=== PATIENT | male | born 1960 | race Caucasian/White ===

== ENCOUNTER 2018-12-07 17:20 | Emergency (ER) | payer MEDICAID, OTHER ==
[~2018-12-07] VITALS: Ht 170.2 cm; Wt 61.0 kg
--- NOTE | 2018-12-07 17:27 | NUR ---
mary arora at bedside/sister,reports that patient verbalized to her that he wanted to hurt himself,no active plan at this time-denies SI during triage.
--- NOTE | 2018-12-07 17:55 | NUR ---
patient placed in a hospital gown,urine and blood collected-sent to the lab.ket comfortable in bed.
[2018-12-07] MEDS ORDERED: normal saline 1000ML IV soln IVB ONE (18:55)
[2018-12-07] MEDS ORDERED: proCHLORperazine 10 MG/2 ml inj IV ONE (18:55)
[2018-12-07] MEDS ORDERED: chlordiazePOXIDE 25mg capsule PO ONE (18:55)
[2018-12-07] MEDS ORDERED: ketorolac tromethamine 15mg/ml inj. IV ONE (18:55)
[2018-12-07] MEDS ORDERED: diphenhydrAMINE 50 mg/ml inj IV ONE (18:55)
[2018-12-07 19:22] LABS: MEAN CORPUSCULAR VOLUME 95.4 FL (78-98); MONOCYTES # (AUTO) 0.7 X10'3 (0-0.9); RED CELL DISTRIBUTION WIDTH 13.6 % (11.5-14.5)
[2018-12-07 19:24] LABS: BASOPHILS % (AUTO) 0.4 % (0-1); EOSINOPHILS % (AUTO) 0.1 % (0-6); HEMATOCRIT 39.5 % (42.0-52.0); HEMOGLOBIN 13.5 g/dl (14.0-17.9); LYMPHOCYTES # (AUTO) 0.8 X10'3 (1.1-4.8); MEAN CORPUSCULAR HEMOGLOBIN 32.7 PG (27.0-31.0); MEAN CORPUSCULAR HGB CONC 34.3 g/dL (33.0-36.5); MEAN PLATELET VOLUME 7.8 FL (7.4-10.4); MONOCYTES % (AUTO) 6.5 % (2-12); PLATELET COUNT 93 X10'3 (140-440); RED BLOOD COUNT 4.14 X10'6 (4.70-6.10); WHITE BLOOD COUNT 10.5 X10'3 (4.5-11.0)
[2018-12-07 19:27] LABS: ALANINE AMINOTRANSFERASE 130 U/L (12-78); ALBUMIN 3.8 G/DL (3.4-5.0); ALBUMIN/GLOBULIN RATIO 1.1 (1.1-1.5); ALKALINE PHOSPHATASE 50 IU/L (46-116); ANION GAP 8 (8-16); ASPARTATE AMINO TRANSFERASE 67 U/L (10-37); BILIRUBIN,TOTAL 1.2 MG/DL (0.1-1.0); BLOOD UREA NITROGEN 16 MG/DL (7-18); BUN/CREATININE RATIO 19.3 (5.4-32.0); CALCIUM 8.5 MG/DL (8.5-10.1); CHLORIDE 94 MMOL/L (99-107); CREATININE 0.83 MG/DL (0.60-1.10); GLUCOSE 156 MG/DL (70-104); LIPASE 216 U/L (73-393); POTASSIUM 4.1 MMOL/L (3.5-5.1); SODIUM 132 MMOL/L (135-145); TOTAL CARBON DIOXIDE 30.1 MMOL/L (24-32); TOTAL PROTEIN 7.2 G/DL (6.4-8.2); eGFR > 90 ML/MIN
[2018-12-07 19:32] LABS: ETHANOL < 0.010 GM/DL (0.0-0.010)
[2018-12-07] MEDS ORDERED: thiamine 100mg tablet PO ONE (20:00)
[2018-12-07] MEDS ORDERED: hyDRALAzine 10mg tablet PO STA (20:44)
[2018-12-07 21:03] VITALS: BP 168/96
[2018-12-07] MEDS ORDERED: ONDA4TAB6 PO (21:42)
[2018-12-07] MEDS ORDERED: CLON-529 PO (21:42)
[2018-12-07] MEDS ORDERED: HYDR-3717 PO (21:42)
[2018-12-07] MEDS ORDERED: CHLO25CA10 PO (21:42)
== END 2018-12-07 22:07 | disposition home or self-care (01) ==
LOC: ER 17:21
DX: F10.239 Alcohol dependence with withdrawal, unspecified (principal); I10 Essential (primary) hypertension; G89.29 Other chronic pain; F41.9 Anxiety disorder, unspecified; R25.1 Tremor, unspecified; Z79.899 Other long term (current) drug therapy
CPT/HCPCS: 36415; 70450; 72125; 80053; 80320; 83690; 85025; 93005; 96374; 96375; 99284; J0780; J1200; J1885; J7030

== ENCOUNTER 2019-04-26 11:46 | Day surgery (SDC) | payer MEDICAID ==
[2019-04-23 11:18] LABS: BASOPHILS # (AUTO) 0.1 X10'3 (0-0.2); EOSINOPHILS # (AUTO) 0.1 X10'3 (0-0.9); EOSINOPHILS % (AUTO) 1.1 % (0-6); HEMATOCRIT 41.1 % (42.0-52.0); LYMPHOCYTES # (AUTO) 1.4 X10'3 (1.1-4.8); MEAN CORPUSCULAR HEMOGLOBIN 32.9 PG (27.0-31.0); MEAN CORPUSCULAR HGB CONC 34.1 g/dL (33.0-36.5); MEAN CORPUSCULAR VOLUME 96.6 FL (78-98); MEAN PLATELET VOLUME 7.3 FL (7.4-10.4); MONOCYTES # (AUTO) 0.5 X10'3 (0-0.9); MONOCYTES % (AUTO) 8.8 % (2-12); NEUTROPHILS # (AUTO) 3.8 X10'3 (1.8-7.7); NEUTROPHILS % (AUTO) 65.1 % (42-75); PLATELET COUNT 214 X10'3 (140-440); RED BLOOD COUNT 4.25 X10'6 (4.70-6.10); RED CELL DISTRIBUTION WIDTH 13.9 % (11.5-14.5); WHITE BLOOD COUNT 5.8 X10'3 (4.5-11.0)
[2019-04-23 11:29] LABS: PARTIAL THROMBOPLASTIN TIME 29 SECONDS (22-32)
[2019-04-23 11:31] LABS: ALANINE AMINOTRANSFERASE 24 U/L (12-78); ALBUMIN 3.9 G/DL (3.4-5.0); ALKALINE PHOSPHATASE 54 IU/L (46-116); ANION GAP 5 (8-16); ASPARTATE AMINO TRANSFERASE 14 U/L (10-37); BILIRUBIN,TOTAL 0.3 MG/DL (0.1-1.0); BLOOD UREA NITROGEN 15 MG/DL (7-18); CHLORIDE 106 MMOL/L (99-107); CREATININE 1.07 MG/DL (0.60-1.10); GLUCOSE 98 MG/DL (70-104); POTASSIUM 4.5 MMOL/L (3.5-5.1); SODIUM 143 MMOL/L (135-145); TOTAL CARBON DIOXIDE 32.1 MMOL/L (24-32); TOTAL PROTEIN 7.7 G/DL (6.4-8.2); eGFR 70 ML/MIN
[~2019-04-26] VITALS: Ht 170.2 cm; Wt 64.8 kg
[2019-04-26] VITALS (12 sets, daily range): BP systolic 115–156; BP diastolic 62–86
[~2019-04-26 11:46] MED LIST: CHLO25CA10 PO; CLON-529 PO; ONDA4TAB6 PO
[2019-04-26] MEDS ORDERED: normal saline 1,000 ML IV SCH (12:05)
[2019-04-26] MEDS ORDERED: diphenhydrAMINE 25mg capsule PO PRN (12:05)
[2019-04-26] MEDS ORDERED: LORazepam 0.5 MG tablet PO PRN (12:05)
[2019-04-26] MEDS ORDERED: nitroGLYCERIN 0.4mg SUBLingual tab SL PRN ×2 (12:05→15:05)
[2019-04-26] MEDS ORDERED: fentaNYL/PF 50MCG/1 ML 2ML syringe ONE (13:00)
[2019-04-26] MEDS ORDERED: LIDOcaine 1% (10mg/ml)w/preservative injection 20ml MDV ONE (13:00)
[2019-04-26] MEDS ORDERED: THC PO (13:00)
[2019-04-26] MEDS ORDERED: ATOR80TA PO (13:00)
[2019-04-26] MEDS ORDERED: DULO60CA45 PO (13:00)
[2019-04-26] MEDS ORDERED: LISI1TAB32 PO (13:00)
[2019-04-26] MEDS ORDERED: midazolam 2 mg/2 ml injection ONE ×2 (13:00→14:09)
[2019-04-26] MEDS ORDERED: OMEP20TA5 PO (13:00)
[2019-04-26] MEDS ORDERED: METO-384 PO (13:00)
[2019-04-26] MEDS ORDERED: QUET50TA PO (13:00)
[2019-04-26] MEDS ORDERED: GABA-532 PO (13:00)
[2019-04-26] MEDS ORDERED: iohexol 350 MG/ML 50ML vial IV ONE ×2 (13:01→14:18)
[2019-04-26] MEDS ORDERED: iohexol 350MG/ML 100ml bottle IV ONE (13:01)
[2019-04-26] MEDS ORDERED: OXAZEpam 15mg capsule PO PRN (15:05)
[2019-04-26] MEDS ORDERED: proCHLORperazine 10 MG/2 ml inj IV PRN (15:05)
[2019-04-26] MEDS ORDERED: normal saline 1000ml 1,000 ML IV SCH (15:05)
[2019-04-26] MEDS ORDERED: HYDROcodone/acetaminophen 10/325mg tab PO PRN (15:05)
[2019-04-26] MEDS ORDERED: ondansetron/PF 4mg/2ml inj IV PRN (15:05)
[2019-04-26] MEDS ORDERED: HYDROcodone/acetaminophen 5mg/325mg tablet PO PRN (15:05)
== END 2019-04-26 20:25 | disposition home or self-care (01) ==
LOC: SSTAY O 11:46
PROVIDERS: ATTEND Internal Medicine Cardiovascular Disease
DX: R94.39 Abnormal result of other cardiovascular function study (principal); I25.10 Atherosclerotic heart disease of native coronary artery without angina pectoris; G89.29 Other chronic pain; F17.210 Nicotine dependence, cigarettes, uncomplicated; F12.90 Cannabis use, unspecified, uncomplicated; J44.9 Chronic obstructive pulmonary disease, unspecified; E78.5 Hyperlipidemia, unspecified; I10 Essential (primary) hypertension; F32.9 Major depressive disorder, single episode, unspecified; Z95.1 Presence of aortocoronary bypass graft; Z79.01 Long term (current) use of anticoagulants
CPT/HCPCS: 36415; 71046; 80053; 85025; 85610; 85730; 93005; 93458; 99152; 99153; C1769; J1644; J2001; J2250; J3010; J7030; Q0163; Q9967; A4620; A6258; C1760

== ENCOUNTER 2019-09-20 17:16 | Emergency (ER) | payer MEDICAID ==
[~2019-09-20] VITALS: Ht 170.2 cm; Wt 66.0 kg
[~2019-09-20 17:16] MED LIST changes: +ATOR80TA PO; -CHLO25CA10 PO; +DULO60CA45 PO; +GABA-532 PO; +LISI1TAB32 PO; +METO-384 PO; +OMEP20TA5 PO; -ONDA4TAB6 PO; +QUET50TA PO; +THC PO
[2019-09-20] MEDS ORDERED: diphenhydrAMINE 50 mg/ml inj IV ONE (18:40)
[2019-09-20] MEDS ORDERED: morphine 4 MG/ML inj SYRINge IV ONE ×2 (18:40→19:55)
[2019-09-20] MEDS ORDERED: proCHLORperazine 10 MG/2 ml inj IV ONE (18:40)
[2019-09-20] MEDS ORDERED: ondansetron/PF 4mg/2ml inj IV ONE ×2 (18:40→19:55)
--- NOTE | 2019-09-20 18:59 | NUR ---
pt given med pain 10/31, vs updated
[2019-09-20 19:35] LABS: BASOPHILS % (AUTO) 0.2 % (0-1); EOSINOPHILS % (AUTO) 0 % (0-6); HEMATOCRIT 40.6 % (42.0-52.0); LYMPHOCYTES # (AUTO) 0.5 X10'3 (1.1-4.8); LYMPHOCYTES % (AUTO) 4.6 % (21-51); MEAN CORPUSCULAR HEMOGLOBIN 31.8 PG (27.0-31.0); MEAN CORPUSCULAR HGB CONC 34.5 g/dL (33.0-36.5); MEAN CORPUSCULAR VOLUME 92.3 FL (78-98); MONOCYTES # (AUTO) 0.7 X10'3 (0-0.9); MONOCYTES % (AUTO) 6.9 % (2-12); NEUTROPHILS # (AUTO) 9.4 X10'3 (1.8-7.7); NEUTROPHILS % (AUTO) 88.3 % (42-75); PLATELET COUNT 157 X10'3 (140-440); RED CELL DISTRIBUTION WIDTH 15.2 % (11.5-14.5); WHITE BLOOD COUNT 10.7 X10'3 (4.5-11.0)
[2019-09-20 19:49] LABS: ALANINE AMINOTRANSFERASE 26 U/L (12-78); ALBUMIN 3.7 G/DL (3.4-5.0); ALKALINE PHOSPHATASE 102 IU/L (46-116); ANION GAP 8 (8-16); ASPARTATE AMINO TRANSFERASE 32 U/L (10-37); BILIRUBIN,TOTAL 0.8 MG/DL (0.1-1.0); BLOOD UREA NITROGEN 10 MG/DL (7-18); BUN/CREATININE RATIO 9.3 (5.4-32.0); CALCIUM 8.7 MG/DL (8.5-10.1); CHLORIDE 102 MMOL/L (99-107); CREATININE 1.08 MG/DL (0.60-1.10); GLUCOSE 116 MG/DL (70-104); LIPASE 91 U/L (73-393); POTASSIUM 3.2 MMOL/L (3.5-5.1); SODIUM 139 MMOL/L (135-145); TOTAL CARBON DIOXIDE 28.8 MMOL/L (24-32); TOTAL PROTEIN 7.4 G/DL (6.4-8.2); eGFR 70 ML/MIN
--- NOTE | 2019-09-20 20:05 | NUR ---
he is shaky when he took a drink of water. Couple of beers Hasn't drank x 2 days
[2019-09-20] MEDS ORDERED: labetalol 20mg/4ml (5mg/ml) syringe IV ONE (20:15)
[2019-09-20] MEDS ORDERED: normal saline 1000ml 1,000 ML IV ONE ×2 (20:15→21:55)
[2019-09-20] MEDS ORDERED: iohexol 350MG/ML 100ml bottle IV ONE (20:25)
--- NOTE | 2019-09-20 20:30 | NUR ---
pt given bp meds pt has been hypertensive, ct here to get pt will salin lock pt for ct
--- NOTE | 2019-09-20 20:55 | NUR ---
pt back from ct, ns bolus infusing, bp checked
--- NOTE | 2019-09-20 21:23 | NUR ---
pt was hooked back up to his vs and changed into a gown
--- NOTE | 2019-09-20 21:24 | NUR ---
pt voided in urinal 400ml
[2019-09-20] MEDS ORDERED: ONDA4TAB6 PO (21:46)
[2019-09-20] MEDS ORDERED: CYCL-1 PO (21:46)
[2019-09-20] MEDS ORDERED: LORazepam 1 MG tablet PO ONE (21:55)
--- NOTE | 2019-09-20 22:08 | NUR ---
PT GIVEN ATIVAN AND SOME FOOD TO GET PT READY FOR DISCHARGE
[2019-09-20] MEDS ORDERED: GABA300C PO (22:48)
[2019-09-20 23:01] VITALS: BP 181/99
== END 2019-09-20 23:04 | disposition home or self-care (01) ==
LOC: ER 17:17
DX: R11.2 Nausea with vomiting, unspecified (principal); M54.5 Low back pain; I10 Essential (primary) hypertension; G89.29 Other chronic pain; F41.9 Anxiety disorder, unspecified; Z98.890 Other specified postprocedural states; Z60.2 Problems related to living alone; Z79.899 Other long term (current) drug therapy
CPT/HCPCS: 36415; 71275; 74174; 80053; 83690; 85025; 93005; 96361; 96374; 96375; 96376; 99285; J0780; J1200; J2270; J2405; J7030; Q9967; J3490

== ENCOUNTER 2023-08-18 08:06 | Day surgery (SDC) | payer BC ==
[~2023-08-18] VITALS: Ht 170.2 cm; Wt 57.0 kg
[2023-08-18] VITALS (7 sets, daily range): BP systolic 136–165; BP diastolic 71–84; PULSE 62–118; RESP 16–31; TEMP 97.9; O2SAT 94–100
[~2023-08-18 08:06] MED LIST changes: -CLON-529 PO; +CLON0.1T2 PO; +DOCUMENT DATE & TIME OF BETA-BLOCKER PO ONE; -DULO60CA45 PO; -GABA-532 PO; +KETO5DRO40 EACHEYE; -LISI1TAB32 PO; +LISI1TAB51 PO; -OMEP20TA5 PO; +OMEP40CA21 PO; -QUET50TA PO; +SERT-434 PO; +SILD50TA53 PO; -THC PO; +TRAZ-251 PO
[2023-08-18] MEDS: famotidine 20mg tablet PO ONE (09:00)
[2023-08-18] MEDS: ringers solution, lacted 1,000 ML IV SCH ×2 (09:01→12:27)
[2023-08-18] MEDS ORDERED: meperidine/PF 25mg/ml syringe IV PRN ×3 (09:45)
[2023-08-18] MEDS ORDERED: morphine 4 MG/ML inj SYRINge IV PRN (09:45)
[2023-08-18] MEDS ORDERED: ondansetron/PF 4mg/2ml inj IV PRN (09:45)
[2023-08-18] MEDS ORDERED: proCHLORperazine 10 MG/2 ml inj IV PRN (09:45)
[2023-08-18] MEDS ORDERED: morphine 2 MG/ML inj. syringe IV PRN (09:45)
[2023-08-18] MEDS ORDERED: sevoflurane 250ml liquid IH ONE (11:07)
[2023-08-18] MEDS ORDERED: fentaNYL/PF 50MCG/1 ML 2ML syringe ONE (11:10)
[2023-08-18] MEDS ORDERED: midazolam 1 mg/ML 2ml injection ONE (11:10)
[2023-08-18] MEDS ORDERED: rocuronium 10mg/ml inj IV ONE (11:12)
[2023-08-18] MEDS ORDERED: propofol inj 20 ML IV ONE (11:12)
[2023-08-18] MEDS ORDERED: dexamethasone sod phosphate 4mg/ml inj. ONE (11:54)
[2023-08-18] MEDS ORDERED: neostigmine methylsulfate 1 MG/ML 10ml vial ONE (11:55)
[2023-08-18] MEDS ORDERED: ondansetron/PF 4mg/2ml inj ONE (11:55)
[2023-08-18] MEDS ORDERED: glycopyrrolate 0.2mg/ml inj ONE (11:55)
== END 2023-08-18 13:03 | disposition home or self-care (01) ==
LOC: PAS 08:06
PROVIDERS: ATTEND Internal Medicine Critical Care Medicine
DX: R91.8 Other nonspecific abnormal finding of lung field (principal); C34.2 Malignant neoplasm of middle lobe, bronchus or lung
CPT/HCPCS: 31653; 71045; 82948; 87015; 87070; 87116; 87206; 93005; 94760; J1100; J2250; J2405; J2704; J2710; J3010; J3490; J7120; Z7506; Z7508; Z7512; 31622; 31624; 31625; 31626; 31627; 31628; 31654; A4618

== ENCOUNTER 2023-10-11 07:13 | Outpatient (CLI) | payer BC, MEDICARE ==
[~2023-10-11] VITALS: Ht 170.2 cm; Wt 59.0 kg
[~2023-10-11 07:13] MED LIST changes: -DOCUMENT DATE & TIME OF BETA-BLOCKER PO ONE
[2023-10-11 08:05] LABS: ABG BASE EXCESS -1.5 mmol/L (-2.0-2.0); ABG HCO3 22.8 mmol/L (22.0-26.0); ABG PH (T) 7.408 (7.340-7.440); ABG PO2 (T) 80.3 mmHg (75.0-100.0); ALLEN'S TEST POSITIVE; FHHb 3.9 % (0.0-5.0); FMetHb 0.2 % (0.0-1.5); FO2Hb 92.9 % (94-97); MODE ROOM AIR; TOTAL HEMOGLOBIN 12.7 G/dl (14.0-17.9)
[2023-10-11] MEDS: albuterol 2.5 MG/3 ML nebule NEB PRN (08:12)
[2023-10-11 08:15] VITALS: PULSE 60; RESP 14; O2SAT 99
[2023-10-12] MEDS ORDERED: PRED5DRO23 EACHEYE (12:46)
== END 2023-10-11 23:59 | disposition home or self-care (01) ==
LOC: RT 07:13
PROVIDERS: ATTEND Surgery
DX: J98.4 Other disorders of lung (principal)
CPT/HCPCS: 36600; 82803; 85018; 94060; 94727; 94729; 94760

== ENCOUNTER 2023-10-13 05:48 | Inpatient (IN) | payer BC, MEDICARE ==
[2023-10-12 12:35] LABS: BASOPHILS % (AUTO) 0.8 % (0-1); EOSINOPHILS % (AUTO) 0.7 % (0-6); LYMPHOCYTES # (AUTO) 1.2 X10'3 (1.1-4.8); LYMPHOCYTES % (AUTO) 23.9 % (21-51); MEAN CORPUSCULAR HEMOGLOBIN 31.9 PG (27.0-31.0); MEAN CORPUSCULAR HGB CONC 33.7 g/dL (33.0-36.5); MEAN CORPUSCULAR VOLUME 94.5 FL (78-98); MEAN PLATELET VOLUME 7.4 FL (7.4-10.4); MONOCYTES # (AUTO) 0.5 X10'3 (0-0.9); MONOCYTES % (AUTO) 9.6 % (2-12); NEUTROPHILS # (AUTO) 3.3 X10'3 (1.8-7.7); PRE OP HEMATOCRIT 35.7 % (42.0-52.0); PRE OP PLATELET COUNT 222 X10'3 (140-440); PRE OP WHITE BLOOD COUNT 5.1 10'3 (4.8-10.8); RED BLOOD COUNT 3.77 X10'6 (4.70-6.10); RED CELL DISTRIBUTION WIDTH 15.2 % (11.5-14.5)
[2023-10-12 12:48] LABS: PRE OP PROTIME 10.6 SECONDS (9.0-12.0)
[2023-10-12 12:51] LABS: ALBUMIN 3.6 G/DL (3.4-5.0); ALBUMIN/GLOBULIN RATIO 0.9 (1.1-1.5); ALKALINE PHOSPHATASE 67 IU/L (46-116); BLOOD UREA NITROGEN 12 MG/DL (7-18); BUN/CREATININE RATIO 11.3 (10.0-20.0); CALCIUM 9.1 MG/DL (8.5-10.1); CHLORIDE 103 MMOL/L (99-107); CREATININE 1.06 MG/DL (0.60-1.10); PRE OP ALT 25 U/L (30-65); PRE OP ANION GAP 7 (8-16); PRE OP AST 11 U/L (10-37); PRE OP BILIRUB, TOTAL 0.5 MG/DL (0.0-1.0); PRE OP GLUCOSE 84 MG/DL (70-104); PRE OP POTASSIUM 4.1 MMOL/L (3.4-5.1); PRE OP SODIUM 141 MMOL/L (135-145); TOTAL CARBON DIOXIDE 31.4 MMOL/L (24-32); TOTAL PROTEIN 7.8 G/DL (6.4-8.2); eCRCL 58 ML/MIN; eGFR 70 ML/MIN
[2023-10-12 12:56] LABS: BILIRUBIN,URINE NEGATIVE (Neg); CLARITY,URINE CLEAR (Clear); COLOR,URINE YELLOW (Yellow); GLUCOSE, URINE NEGATIVE (Neg); KETONES,URINE NEGATIVE (Neg); LEUKOCYTE ESTERASE ,URINE NEGATIVE (Neg); NITRITES, URINE NEGATIVE (Neg); OCCULT BLOOD,URINE NEGATIVE (Neg); PROTEIN,URINE NEGATIVE (Neg); UROBILINOGEN,URINE 0.2 E.U/dL (0.2-1.0)
[2023-10-12 13:01] LABS: UA COLLECTION TYPE CLN CATCH MIDSTREAM
[~2023-10-13] VITALS: Ht 170.2 cm; Wt 56.9 kg
[2023-10-13] VITALS (20 sets, daily range): BP systolic 115–172; BP diastolic 55–101; PULSE 58–88; RESP 12–17; TEMP 97.6; O2SAT 94–100
[2023-10-13] MEDS: cefazolin 2gm/D5W 100mL 100 ML IV ONE (05:30)
[~2023-10-13 05:48] MED LIST changes: +PRED5DRO23 EACHEYE; +famotidine 20mg tablet PO ONE
[2023-10-13] MEDS ORDERED: iohexol 300mg/ml 100ml inj. ONE (07:08)
[2023-10-13] MEDS ORDERED: MIDAZolam 1 MG/ML 5ML VIAL ONE (07:46)
[2023-10-13] MEDS ORDERED: fentaNYL /PF 50mcg/ml 5ml ampule ONE (07:46)
[2023-10-13] MEDS ORDERED: propofol inj 20 ML IV ONE (07:46)
[2023-10-13] MEDS ORDERED: rocuronium 10mg/ml inj IV ONE ×3 (07:48→13:07)
[2023-10-13] MEDS: ringers solution, lacted 1,000 ML IV SCH (07:48)
[2023-10-13] MEDS ORDERED: sevoflurane 250ml liquid IH ONE (09:01)
[2023-10-13] MEDS ORDERED: albumin (Human) 5% 250ml 250 ML IV ONE ×2 (10:46→13:07)
[2023-10-13] MEDS ORDERED: dexamethasone sod phosphate 4mg/ml inj. ONE (13:07)
[2023-10-13 14:40] LABS: ISTAT CREATININE 1.1 mg/dL (0.8-1.3); ISTAT HGB 10.2 g/dl (14.0-17.9); ISTAT IONIZED CALCIUM 1.14 mmol/L (1.03-1.32); ISTAT K 3.7 mmol/L (3.5-5.1); POC BUN/CREATININE RATIO 14.5 (5.4-32.0)
[2023-10-13] MEDS ORDERED: ceFAZolin 1000mg inj ONE ×2 (14:44)
[2023-10-13] MEDS ORDERED: acetaminophen 1,000mg/100ml IV 100 ML IV ONE (15:19)
[2023-10-13] MEDS ORDERED: fentaNYL/PF 50MCG/1 ML 2ML syringe ONE (15:20)
[2023-10-13] MEDS ORDERED: ondansetron/PF 4mg/2ml inj ONE (15:27)
[2023-10-13] MEDS ORDERED: sugammadex 200mg/2ml injection IV ONE (15:54)
[2023-10-13] MEDS ORDERED: morphine 2 MG/ML inj. syringe IV PRN ×2 (16:25→16:40)
[2023-10-13] MEDS ORDERED: ondansetron/PF 4mg/2ml inj IV PRN ×2 (16:25→16:40)
[2023-10-13] MEDS ORDERED: hydrALAZINE 20mg/ml inj. IV PRN (16:25)
[2023-10-13] MEDS ORDERED: meperidine/PF 25mg/ml syringe IV PRN ×3 (16:25)
[2023-10-13] MEDS ORDERED: labetalol 20mg/4ml (5mg/ml) syringe IV PRN (16:25)
[2023-10-13] MEDS ORDERED: ringers solution, lacted 1,000 ML IV SCH (16:25)
[2023-10-13] MEDS ORDERED: morphine 4 MG/ML inj SYRINge IV PRN ×2 (16:25→16:40)
[2023-10-13] MEDS: ondansetron/PF 4mg/2ml inj ONE (16:25)
[2023-10-13] MEDS: ketorolac trometh. 30mg/ml inj. ONE (16:25)
[2023-10-13] MEDS ORDERED: proCHLORperazine 10 MG/2 ml inj IV PRN (16:25)
[2023-10-13 16:33] LABS: ABG BASE EXCESS -4.7 mmol/L (-2.0-2.0); ABG HCO3 23.9 mmol/L (22.0-26.0); ABG OXYGEN SATURATION 99.4 % (94-97); ABG PH (T) 7.219 (7.340-7.440); ABG PO2 (T) 221.1 mmHg (75.0-100.0); FCOHb 0.4 % (0.0-3.9); FHHb 0.6 % (0.0-5.0); FLOW 10 L/min; FMetHb 0.3 % (0.0-1.5); FO2Hb 98.7 % (94-97); MODE Simple Mask; TOTAL HEMOGLOBIN 11.2 G/dl (14.0-17.9)
[2023-10-13] MEDS ORDERED: HYDROcodone/acetaminophen 10/325mg tab PO PRN ×2 (16:40)
[2023-10-13] MEDS ORDERED: HYDROmorphone inj. 0.5 MG/0.5 ML DISP.SYRIN IV PRN (16:40)
[2023-10-13] MEDS ORDERED: metoclopramide 5 mg/ml inj IV PRN (16:40)
[2023-10-13] MEDS ORDERED: albuterol 2.5 MG/3 ML nebule NEB PRN (16:40)
[2023-10-13] MEDS: niCARDipine-NS 40mg/200ml IVPB 200 ML IV SCH (16:42)
[2023-10-13 16:54] LABS: BASOPHILS % (AUTO) 0.2 % (0-1); EOSINOPHILS % (AUTO) 0.1 % (0-6); HEMATOCRIT 31.4 % (42.0-52.0); HEMOGLOBIN 10.4 g/dl (14.0-17.9); LYMPHOCYTES # (AUTO) 0.6 X10'3 (1.1-4.8); LYMPHOCYTES % (AUTO) 6.7 % (21-51); MEAN CORPUSCULAR HEMOGLOBIN 31.7 PG (27.0-31.0); MEAN PLATELET VOLUME 7.3 FL (7.4-10.4); MONOCYTES # (AUTO) 0.4 X10'3 (0-0.9); MONOCYTES % (AUTO) 4.6 % (2-12); NEUTROPHILS # (AUTO) 7.3 X10'3 (1.8-7.7); NEUTROPHILS % (AUTO) 88.4 % (42-75); PLATELET COUNT 192 X10'3 (140-440); RED BLOOD COUNT 3.27 X10'6 (4.70-6.10); RED CELL DISTRIBUTION WIDTH 15.9 % (11.5-14.5); WHITE BLOOD COUNT 8.2 X10'3 (4.5-11.0)
[2023-10-13] MEDS ORDERED: naloxone 0.4 mg/ml inj IV PRN (17:05)
[2023-10-13 17:35] LABS: ABG BASE EXCESS -1.9 mmol/L (-2.0-2.0); ABG HCO3 24.5 mmol/L (22.0-26.0); ABG OXYGEN SATURATION 97.4 % (94-97); ABG PCO2 (T) 46.8 mmHg (35.0-48.0); ABG PH (T) 7.331 (7.340-7.440); FCOHb 0.5 % (0.0-3.9); FHHb 2.6 % (0.0-5.0); FLOW 2 L/min; FMetHb 0.3 % (0.0-1.5); FO2Hb 96.6 % (94-97); MODE NC; TOTAL HEMOGLOBIN 11.1 G/dl (14.0-17.9)
[2023-10-13] MEDS: HYDROmorph/NS 0.2 mg/ml PCA 100 ML IV SCH (17:35)
[2023-10-13] MEDS: potassium Cl 20mEq in D5-NS 1,000 ML IV SCH (18:44)
[2023-10-13 18:47] LABS: ABG BASE EXCESS -1.4 mmol/L (-2.0-2.0); ABG HCO3 23.7 mmol/L (22.0-26.0); ABG OXYGEN SATURATION 93.7 % (94-97); ABG PCO2 (T) 39.5 mmHg (35.0-48.0); ABG PH (T) 7.391 (7.340-7.440); ABG PO2 (T) 62.2 mmHg (75.0-100.0); FCOHb 0.7 % (0.0-3.9); FHHb 6.2 % (0.0-5.0); FLOW 2 L/min; FMetHb 0.3 % (0.0-1.5); FO2Hb 92.8 % (94-97); MODE NASAL CANNULA; PATIENT TEMPERATURE 35.8; TOTAL HEMOGLOBIN 10.9 G/dl (14.0-17.9)
[2023-10-13] MEDS: albuterol 2.5 MG/3 ML nebule NEB ONE (18:48)
[2023-10-13] MEDS: NORepinephrine 8mg/ 250ml NS 250 ML IV ONE (18:49)
[2023-10-13] MEDS: BUPIVAcaine/PF 2.5mg/ml (0.25%) 10ml vial ONE (18:49)
[2023-10-13] MEDS: BUPIVAcaine 2.5mg/ml inj 50ml vial (contains preservative) ONE (18:49)
[2023-10-13] MEDS: INDOCYANINE GREEN 25 MG/10 ML VIAL IV ONE (18:49)
[2023-10-13] MEDS: famotidine 20mg tablet PO ONE (18:50)
[2023-10-13] MEDS: BUPIVACAINE liposomal/PF 13.3 MG/ML vial IM ONE (18:50)
[2023-10-13] MEDS: ketorolac trometh. 30mg/ml inj. IV ONE (18:50)
[2023-10-13] MEDS: heparin 10,000 units/1 ML INJ ONE (18:50)
[2023-10-13] MEDS: DOCUMENT DATE & TIME OF BETA-BLOCKER PO ONE (18:51)
[2023-10-13] MEDS: gabapentin 300mg capsule PO SCH (19:34)
[2023-10-13] MEDS: ketorolac tromethamine 15mg/ml inj. IV SCH (19:34)
[2023-10-14] VITALS (24 sets, daily range): BP systolic 111–177; BP diastolic 52–100; PULSE 79–101; RESP 12–23; O2SAT 92–99
[2023-10-14] MEDS: ceFAZolin inj. 1,000 MG in dextrose 5%-water 50ml 50 ML IV SCH (00:10)
[2023-10-14 03:16] LABS: BASOPHILS % (AUTO) 0.1 % (0-1); EOSINOPHILS % (AUTO) 0 % (0-6); HEMATOCRIT 30.5 % (42.0-52.0); HEMOGLOBIN 10.4 g/dl (14.0-17.9); LYMPHOCYTES # (AUTO) 0.5 X10'3 (1.1-4.8); LYMPHOCYTES % (AUTO) 5.7 % (21-51); MEAN CORPUSCULAR HGB CONC 34.1 g/dL (33.0-36.5); MEAN CORPUSCULAR VOLUME 93.9 FL (78-98); MEAN PLATELET VOLUME 7.5 FL (7.4-10.4); MONOCYTES # (AUTO) 0.6 X10'3 (0-0.9); MONOCYTES % (AUTO) 6.7 % (2-12); NEUTROPHILS # (AUTO) 7.7 X10'3 (1.8-7.7); NEUTROPHILS % (AUTO) 87.5 % (42-75); PLATELET COUNT 184 X10'3 (140-440); RED BLOOD COUNT 3.25 X10'6 (4.70-6.10); RED CELL DISTRIBUTION WIDTH 14.8 % (11.5-14.5); WHITE BLOOD COUNT 8.8 X10'3 (4.5-11.0)
[2023-10-14 03:37] LABS: ALANINE AMINOTRANSFERASE 24 U/L (12-78); ALBUMIN 3.1 G/DL (3.4-5.0); ALBUMIN/GLOBULIN RATIO 0.9 (1.1-1.5); ALKALINE PHOSPHATASE 47 IU/L (46-116); ANION GAP 8 (8-16); ASPARTATE AMINO TRANSFERASE 25 U/L (10-37); BILIRUBIN,TOTAL 0.3 MG/DL (0.1-1.0); BLOOD UREA NITROGEN 13 MG/DL (7-18); BUN/CREATININE RATIO 13.1 (10.0-20.0); CALCIUM 7.9 MG/DL (8.5-10.1); CHLORIDE 103 MMOL/L (99-107); CREATININE 0.99 MG/DL (0.60-1.10); GLUCOSE 161 MG/DL (70-104); MAGNESIUM 1.6 MG/DL (1.5-2.4); PHOSPHORUS 3.2 MG/DL (2.3-4.5); POTASSIUM 3.7 MMOL/L (3.5-5.1); SODIUM 138 MMOL/L (135-145); TOTAL CARBON DIOXIDE 27.2 MMOL/L (24-32); TOTAL PROTEIN 6.4 G/DL (6.4-8.2); eCRCL 60 ML/MIN; eGFR 76 ML/MIN
[2023-10-14] MEDS: ceFAZolin/D5W- 1GM premix 50 ML IV SCH (14:43)
[2023-10-14] MEDS: LORazepam 2 mg/ml vial IV PRN (14:59)
[2023-10-14] MEDS ORDERED: ketorolac tromethamine 0.5% ophthalmic drops EACHEYE PRN (17:20)
[2023-10-14] MEDS: ringers solution, lacted 1,000 ML IV SCH (17:34)
[2023-10-14] MEDS: dextrose 5%-1/2 normal saline 1,000 ML IV SCH (19:02)
[2023-10-14] MEDS: magnesium oxide 400mg tablet PO SCH (21:21)
[2023-10-14] MEDS: cloNIDine 0.1 mg tablet PO SCH (21:22)
[2023-10-14] MEDS: traZODone 50mg tablet PO SCH (21:22)
[2023-10-14] MEDS: prednisoLONE acetate 1% ophth susp 5ml EACHEYE SCH (21:22)
[2023-10-14] MEDS: metoprolol succinate 25mg (24-HOUR) SR. Tablet PO SCH (21:22)
[2023-10-15] VITALS (24 sets, daily range): BP systolic 94–165; BP diastolic 54–90; PULSE 63–118; RESP 10–26; O2SAT 90–100
[2023-10-15] MEDS: magnesium 4gm in 100ml NS 100 ML IV PRN (02:50)
[2023-10-15] MEDS: amiodarone 150mg/dext, iso-os 100 ML IV ONE (02:50)
[2023-10-15] MEDS: amiodarone/D5 360MG/200ML BAG 200 ML IV SCH ×2 (03:00→09:00)
[2023-10-15] MEDS: amiodarone 150mg/dext, iso-os 100 ML IV STA (03:04)
[2023-10-15 03:52] LABS: BASOPHILS % (AUTO) 0.3 % (0-1); EOSINOPHILS % (AUTO) 0.1 % (0-6); HEMOGLOBIN 9.8 g/dl (14.0-17.9); LYMPHOCYTES # (AUTO) 1.2 X10'3 (1.1-4.8); LYMPHOCYTES % (AUTO) 16.2 % (21-51); MEAN CORPUSCULAR HGB CONC 33.8 g/dL (33.0-36.5); MEAN CORPUSCULAR VOLUME 94.7 FL (78-98); MEAN PLATELET VOLUME 7.4 FL (7.4-10.4); MONOCYTES # (AUTO) 0.4 X10'3 (0-0.9); MONOCYTES % (AUTO) 5.8 % (2-12); NEUTROPHILS # (AUTO) 5.6 X10'3 (1.8-7.7); NEUTROPHILS % (AUTO) 77.6 % (42-75); PLATELET COUNT 160 X10'3 (140-440); RED BLOOD COUNT 3.06 X10'6 (4.70-6.10); RED CELL DISTRIBUTION WIDTH 15.6 % (11.5-14.5); WHITE BLOOD COUNT 7.2 X10'3 (4.5-11.0)
[2023-10-15 04:23] LABS: ALANINE AMINOTRANSFERASE 19 U/L (12-78); ALBUMIN 2.6 G/DL (3.4-5.0); ALBUMIN/GLOBULIN RATIO 0.8 (1.1-1.5); ALKALINE PHOSPHATASE 43 IU/L (46-116); ANION GAP 7 (8-16); ASPARTATE AMINO TRANSFERASE 21 U/L (10-37); BILIRUBIN,TOTAL 0.4 MG/DL (0.1-1.0); BLOOD UREA NITROGEN 18 MG/DL (7-18); BUN/CREATININE RATIO 18.2 (10.0-20.0); CALCIUM 8.6 MG/DL (8.5-10.1); CHLORIDE 102 MMOL/L (99-107); CREATININE 0.99 MG/DL (0.60-1.10); GLUCOSE 118 MG/DL (70-104); MAGNESIUM 3.8 MG/DL (1.5-2.4); PHOSPHORUS 2.4 MG/DL (2.3-4.5); POTASSIUM 3.5 MMOL/L (3.5-5.1); SODIUM 137 MMOL/L (135-145); TOTAL CARBON DIOXIDE 27.9 MMOL/L (24-32); eCRCL 60 ML/MIN; eGFR 76 ML/MIN
[2023-10-15] MEDS: pantoprazole 40mg Tablet.DR PO SCH (09:09)
[2023-10-15] MEDS ORDERED: potassium Cl 20mEq/100mL bag 100 ML IV PRN (09:40)
[2023-10-15] MEDS ORDERED: magnesium 2GM in 50ml NS 50 ML IV PRN (09:40)
[2023-10-15] MEDS ORDERED: potassium CL 10mEq/100ml bag 100 ML IV PRN (09:40)
[2023-10-15] MEDS ORDERED: potassium Cl 40MEQ/1/2NS 520ml 520 ML IV PRN (09:40)
[2023-10-15] MEDS: albumin (human) 25% 100 ML IV solution IV ONE (10:14)
[2023-10-15] MEDS: potassium Cl 20 mEq SR tablet PO PRN (10:27)
[2023-10-15] MEDS: JUVEN Shake w/Arg/Glut/Ca2+Bmb (Juven 19.3gm) pkt 240ml PO SCH (10:45)
[2023-10-15] MEDS: HYDROchlorothiazide 12.5mg capsule PO SCH (12:10)
[2023-10-15] MEDS: sertraline 50mg tablet PO SCH (12:12)
[2023-10-15] MEDS: lactose-reduced food (Ensure High Protein) 237ml bottle PO SCH (12:48)
[2023-10-15] MEDS ORDERED: JUVEN Shake w/Arg/Glut/Ca2+Bmb (Juven 19.3gm) pkt 240ml PO SCH (13:00)
[2023-10-15 19:13] LABS: ANION GAP 5 (8-16); BLOOD UREA NITROGEN 22 MG/DL (7-18); BUN/CREATININE RATIO 21.8 (10.0-20.0); CALCIUM 8.5 MG/DL (8.5-10.1); CHLORIDE 98 MMOL/L (99-107); CREATININE 1.01 MG/DL (0.60-1.10); GLUCOSE 116 MG/DL (70-104); POTASSIUM 4.1 MMOL/L (3.5-5.1); SODIUM 132 MMOL/L (135-145); TOTAL CARBON DIOXIDE 29.2 MMOL/L (24-32); eCRCL 59 ML/MIN; eGFR 74 ML/MIN
[2023-10-15 20:07] LABS: MAGNESIUM 2.4 MG/DL (1.5-2.4)
[2023-10-15] MEDS: acetaminophen 325mg tablet PO PRN (20:52)
[2023-10-16] VITALS (26 sets, daily range): BP systolic 97–180; BP diastolic 46–89; PULSE 58–78; RESP 12–24; O2SAT 91–98
[2023-10-16 02:22] LABS: BASOPHILS % (AUTO) 0.3 % (0-1); HEMATOCRIT 25.1 % (42.0-52.0); HEMOGLOBIN 8.6 g/dl (14.0-17.9); LYMPHOCYTES # (AUTO) 0.8 X10'3 (1.1-4.8); LYMPHOCYTES % (AUTO) 19.5 % (21-51); MEAN CORPUSCULAR HEMOGLOBIN 31.7 PG (27.0-31.0); MEAN CORPUSCULAR VOLUME 93.3 FL (78-98); MEAN PLATELET VOLUME 7.6 FL (7.4-10.4); MONOCYTES # (AUTO) 0.3 X10'3 (0-0.9); MONOCYTES % (AUTO) 6.1 % (2-12); NEUTROPHILS % (AUTO) 73.1 % (42-75); PLATELET COUNT 138 X10'3 (140-440); RED CELL DISTRIBUTION WIDTH 14.9 % (11.5-14.5); WHITE BLOOD COUNT 4.1 X10'3 (4.5-11.0)
[2023-10-16 02:44] LABS: ALANINE AMINOTRANSFERASE 76 U/L (12-78); ALBUMIN 2.5 G/DL (3.4-5.0); ALBUMIN/GLOBULIN RATIO 0.9 (1.1-1.5); ALKALINE PHOSPHATASE 89 IU/L (46-116); ANION GAP 6 (8-16); ASPARTATE AMINO TRANSFERASE 95 U/L (10-37); BILIRUBIN,TOTAL 0.3 MG/DL (0.1-1.0); BLOOD UREA NITROGEN 22 MG/DL (7-18); CALCIUM 7.7 MG/DL (8.5-10.1); CHLORIDE 99 MMOL/L (99-107); CREATININE 1.05 MG/DL (0.60-1.10); GLUCOSE 123 MG/DL (70-104); MAGNESIUM 2.2 MG/DL (1.5-2.4); POTASSIUM 4.4 MMOL/L (3.5-5.1); SODIUM 134 MMOL/L (135-145); TOTAL PROTEIN 5.4 G/DL (6.4-8.2); eCRCL 56 ML/MIN; eGFR 71 ML/MIN
[2023-10-16] MEDS: amiodarone/D5 360MG/200ML BAG 200 ML IV SCH (03:00)
[2023-10-16] MEDS: potassium Cl 40MEQ/270ML bag 250 ML IV PRN (05:27)
[2023-10-16] MEDS: amiodarone 200mg tablet PO SCH (10:30)
[2023-10-16] MEDS: HYDROcodone/acetaminophen 10/325mg tab PO PRN (10:31)
[2023-10-16] MEDS: magnesium hydroxide 30ml (MOM) UD suspension PO SCH (10:43)
[2023-10-16] MEDS: lisinopril 20mg tablet PO SCH (11:16)
[2023-10-16] MEDS: Neutra Phos packet PO SCH ×2 (11:17→17:35)
[2023-10-16] MEDS: PCA WASTE DOCUMENTATION 1 MG ML MC SCH (11:50)
[2023-10-16] MEDS: lactose-reduced food (Ensure Enlive) - 237ml bottle PO SCH (13:00)
[2023-10-16] MEDS ORDERED: ALPRAZolam 0.25mg tablet PO PRN (17:05)
[2023-10-16] MEDS: nicotine 21mg patch - 24 hr TD SCH (19:04)
[2023-10-16] MEDS: OXAZEpam 15mg capsule PO PRN (19:21)
[2023-10-16] MEDS ORDERED: magnesium hydroxide 30ml (MOM) UD suspension PO SCH (20:00)
[2023-10-17] VITALS (28 sets, daily range): BP systolic 111–198; BP diastolic 52–96; PULSE 65–87; RESP 14–26; O2SAT 90–99
[2023-10-17 05:03] LABS: BASOPHILS % (AUTO) 0.3 % (0-1); EOSINOPHILS # (AUTO) 0.1 X10'3 (0-0.9); LYMPHOCYTES # (AUTO) 0.5 X10'3 (1.1-4.8); MEAN PLATELET VOLUME 7.7 FL (7.4-10.4); NEUTROPHILS # (AUTO) 2.4 X10'3 (1.8-7.7); RED CELL DISTRIBUTION WIDTH 15.1 % (11.5-14.5); WHITE BLOOD COUNT 3.6 X10'3 (4.5-11.0)
[2023-10-17 05:05] LABS: EOSINOPHILS % (AUTO) 2.1 % (0-6); HEMATOCRIT 23.8 % (42.0-52.0); HEMOGLOBIN 8.1 g/dl (14.0-17.9); LYMPHOCYTES % (AUTO) 15.4 % (21-51); MEAN CORPUSCULAR HEMOGLOBIN 31.8 PG (27.0-31.0); MEAN CORPUSCULAR HGB CONC 33.8 g/dL (33.0-36.5); MEAN CORPUSCULAR VOLUME 94.1 FL (78-98); MONOCYTES # (AUTO) 0.5 X10'3 (0-0.9); MONOCYTES % (AUTO) 14.7 % (2-12); NEUTROPHILS % (AUTO) 67.5 % (42-75); PLATELET COUNT 160 X10'3 (140-440); RED BLOOD COUNT 2.53 X10'6 (4.70-6.10)
[2023-10-17 05:18] LABS: ALANINE AMINOTRANSFERASE 56 U/L (12-78); ALBUMIN 2.1 G/DL (3.4-5.0); ALBUMIN/GLOBULIN RATIO 0.7 (1.1-1.5); ALKALINE PHOSPHATASE 83 IU/L (46-116); ANION GAP 6 (8-16); ASPARTATE AMINO TRANSFERASE 30 U/L (10-37); BILIRUBIN,TOTAL 0.5 MG/DL (0.1-1.0); BLOOD UREA NITROGEN 20 MG/DL (7-18); BUN/CREATININE RATIO 20.8 (10.0-20.0); CALCIUM 7.9 MG/DL (8.5-10.1); CHLORIDE 100 MMOL/L (99-107); CREATININE 0.96 MG/DL (0.60-1.10); GLUCOSE 109 MG/DL (70-104); PHOSPHORUS 1.9 MG/DL (2.3-4.5); POTASSIUM 4.2 MMOL/L (3.5-5.1); SODIUM 133 MMOL/L (135-145); TOTAL CARBON DIOXIDE 26.7 MMOL/L (24-32); TOTAL PROTEIN 5.1 G/DL (6.4-8.2); eCRCL 62 ML/MIN; eGFR 79 ML/MIN
[2023-10-17] MEDS: magnesium 4gm in 100ml NS 100 ML IV PRN (05:26)
[2023-10-17] MEDS: hydrALAZINE 20mg/ml inj. IV PRN (11:06)
[2023-10-17] MEDS: cloNIDine 0.1 mg tablet PO SCH (20:41)
[2023-10-18] VITALS (9 sets, daily range): BP systolic 129–161; BP diastolic 57–80; PULSE 64–80; RESP 16–24; TEMP 97.4–98.1; O2SAT 93–99
[2023-10-18 06:22] LABS: BASOPHILS % (AUTO) 0.4 % (0-1); EOSINOPHILS % (AUTO) 0.8 % (0-6); HEMATOCRIT 25.2 % (42.0-52.0); HEMOGLOBIN 8.5 g/dl (14.0-17.9); LYMPHOCYTES # (AUTO) 0.7 X10'3 (1.1-4.8); LYMPHOCYTES % (AUTO) 12.3 % (21-51); MEAN CORPUSCULAR HEMOGLOBIN 31.9 PG (27.0-31.0); MEAN CORPUSCULAR HGB CONC 33.9 g/dL (33.0-36.5); MEAN CORPUSCULAR VOLUME 94.1 FL (78-98); MEAN PLATELET VOLUME 7.5 FL (7.4-10.4); MONOCYTES # (AUTO) 0.7 X10'3 (0-0.9); MONOCYTES % (AUTO) 13.1 % (2-12); NEUTROPHILS % (AUTO) 73.4 % (42-75); PLATELET COUNT 206 X10'3 (140-440); RED BLOOD COUNT 2.68 X10'6 (4.70-6.10); RED CELL DISTRIBUTION WIDTH 14.9 % (11.5-14.5); WHITE BLOOD COUNT 5.4 X10'3 (4.5-11.0)
[2023-10-18 06:37] LABS: ALANINE AMINOTRANSFERASE 43 U/L (12-78); ALBUMIN 2.3 G/DL (3.4-5.0); ALBUMIN/GLOBULIN RATIO 0.7 (1.1-1.5); ALKALINE PHOSPHATASE 75 IU/L (46-116); ANION GAP 5 (8-16); ASPARTATE AMINO TRANSFERASE 21 U/L (10-37); BILIRUBIN,TOTAL 0.5 MG/DL (0.1-1.0); BLOOD UREA NITROGEN 18 MG/DL (7-18); BUN/CREATININE RATIO 17.6 (10.0-20.0); CALCIUM 8.2 MG/DL (8.5-10.1); CHLORIDE 102 MMOL/L (99-107); CREATININE 1.02 MG/DL (0.60-1.10); GLUCOSE 98 MG/DL (70-104); MAGNESIUM 2.2 MG/DL (1.5-2.4); PHOSPHORUS 3.2 MG/DL (2.3-4.5); POTASSIUM 4.1 MMOL/L (3.5-5.1); SODIUM 135 MMOL/L (135-145); TOTAL CARBON DIOXIDE 27.6 MMOL/L (24-32); TOTAL PROTEIN 5.6 G/DL (6.4-8.2); eCRCL 58 ML/MIN; eGFR 73 ML/MIN
[2023-10-18] MEDS ORDERED: ACET-1008 PO (17:54)
== END 2023-10-18 18:35 | disposition home or self-care (01) | DRG 164 ==
LOC: PAS IN 05:48 → CICU 2S 17:54 → PCU 3S 10-18 05:30
PROVIDERS: ADMIT Surgery; ATTEND Surgery
PROC: 0BTD4ZZ Resection of Right Middle Lung Lobe, Percutaneous Endoscopic Approach (ICD-10-PCS; 2023-10-13)
PROC: 0BTC4ZZ Resection of Right Upper Lung Lobe, Percutaneous Endoscopic Approach (ICD-10-PCS; 2023-10-13)
PROC: 07B74ZZ Excision of Thorax Lymphatic, Percutaneous Endoscopic Approach (ICD-10-PCS; 2023-10-13)
PROC: 8E0W4CZ Robotic Assisted Procedure of Trunk Region, Percutaneous Endoscopic Approach (ICD-10-PCS; 2023-10-13)
PROC: 0BNK4ZZ Release Right Lung, Percutaneous Endoscopic Approach (ICD-10-PCS; 2023-10-13)
PROC: 0W9940Z Drainage of Right Pleural Cavity with Drainage Device, Percutaneous Endoscopic Approach (ICD-10-PCS; 2023-10-13)
PROC: 02HV33Z Insertion of Infusion Device into Superior Vena Cava, Percutaneous Approach (ICD-10-PCS; 2023-10-13)
PROC: 02U Heart and Great Vessels, Supplement (ICD-10-PCS; principal; 2023-10-13 09:01)
DX: C34.91 Malignant neoplasm of unspecified part of right bronchus or lung (principal); I31.0 Chronic adhesive pericarditis; J90 Pleural effusion, not elsewhere classified; K21.9 Gastro-esophageal reflux disease without esophagitis; I10 Essential (primary) hypertension; J44.9 Chronic obstructive pulmonary disease, unspecified; F32.A Depression, unspecified; F41.9 Anxiety disorder, unspecified
CPT/HCPCS: Z7506; Z7508; 36415; 36600; 71045; 71046; 71260; 80047; 80048; 80053; 81003; 82803; 82948; 83735; 84100; 84484; 85018; 85025; 85610; 85730; 86885; 86900; 86901; 86920; 87081; 93005; 94668; 94760; 97116; 97161; 97530; A4333; A4349; A4615; A4618; A4620; A4649; A6196; A6213; A6253; A6258; A6402; A6449; A7000; A7048; C1751; C1758; C1781; C9250; C9290; G0378; J0131; J0282; J0360; J0690; J1100; J1170; J1644; J1885; J2060; J2250; J2405; J2704; J2710; J3010; J3475; J3480; J3490; J7040; J7060; J7120; P9045; P9047; Q9967

== ENCOUNTER 2024-01-02 14:28 | Emergency (ER) | payer BC, MEDICARE ==
[~2024-01-02] VITALS: Ht 170.2 cm; Wt 54.1 kg
[~2024-01-02 14:28] MED LIST changes: +ACET-1008 PO; -ATOR80TA PO; -SILD50TA53 PO; -famotidine 20mg tablet PO ONE
[2024-01-02 14:56] LABS: BASOPHILS % (AUTO) 0.3 % (0-1); EOSINOPHILS % (AUTO) 0.2 % (0-6); HEMATOCRIT 24.9 % (42.0-52.0); HEMOGLOBIN 8.2 g/dl (14.0-17.9); LYMPHOCYTES # (AUTO) 0.3 X10'3 (1.1-4.8); LYMPHOCYTES % (AUTO) 8.4 % (21-51); MEAN CORPUSCULAR HEMOGLOBIN 30.3 PG (27.0-31.0); MEAN CORPUSCULAR HGB CONC 33.1 g/dL (33.0-36.5); MEAN CORPUSCULAR VOLUME 91.5 FL (78-98); MEAN PLATELET VOLUME 7.5 FL (7.4-10.4); MONOCYTES # (AUTO) 0.3 X10'3 (0-0.9); MONOCYTES % (AUTO) 8.8 % (2-12); NEUTROPHILS # (AUTO) 3.2 X10'3 (1.8-7.7); NEUTROPHILS % (AUTO) 82.3 % (42-75); PLATELET COUNT 235 X10'3 (140-440); RED BLOOD COUNT 2.72 X10'6 (4.70-6.10); RED CELL DISTRIBUTION WIDTH 15.5 % (11.5-14.5); WHITE BLOOD COUNT 3.9 X10'3 (4.5-11.0)
[2024-01-02 15:21] LABS: ALANINE AMINOTRANSFERASE 26 U/L (12-78); ALBUMIN/GLOBULIN RATIO 0.5 (1.1-1.5); ALKALINE PHOSPHATASE 52 IU/L (46-116); ANION GAP 9 (8-16); ASPARTATE AMINO TRANSFERASE 18 U/L (10-37); BILIRUBIN,TOTAL 0.4 MG/DL (0.1-1.0); BLOOD UREA NITROGEN 15 MG/DL (7-18); BUN/CREATININE RATIO 20.8 (10.0-20.0); CALCIUM 8.8 MG/DL (8.5-10.1); CHLORIDE 98 MMOL/L (99-107); CREATININE 0.72 MG/DL (0.60-1.10); GLUCOSE 108 MG/DL (70-104); POTASSIUM 4.3 MMOL/L (3.5-5.1); SODIUM 131 MMOL/L (135-145); TOTAL CARBON DIOXIDE 23.7 MMOL/L (24-32); eCRCL 78 ML/MIN; eGFR > 90 ML/MIN
[2024-01-02 15:35] LABS: PRO BRAIN NATRIURETIC PEPTIDE 3027 PG/ML (0-125)
[2024-01-02 15:40] LABS: D-DIMER 1.04 MG/L FEU (0-0.50)
[2024-01-02] MEDS ORDERED: iohexol 350MG/ML 100ml bottle IV ONE (16:14)
[2024-01-02] MEDS ORDERED: ONDA-104 PO (18:18)
[2024-01-02] MEDS ORDERED: GABAPENTIN (18:18)
[2024-01-02] MEDS ORDERED: ASPI-1265 PO (18:18)
[2024-01-02] MEDS ORDERED: HYDR-3927 PO (18:18)
[2024-01-02] MEDS ORDERED: ATOR40TA72 PO (18:18)
[2024-01-02] MEDS ORDERED: SACU1TAB PO (18:18)
[2024-01-02] MEDS ORDERED: EMPA10TA PO (18:18)
[2024-01-02] MEDS ORDERED: PROC10TA97 PO (18:18)
[2024-01-02] MEDS ORDERED: HYDR-3972 PO (18:18)
[2024-01-02] MEDS ORDERED: CARV-50 PO (18:18)
[2024-01-02] MEDS ORDERED: SPIR25TA5 PO (18:18)
[2024-01-02] MEDS: furosemide 10 MG/1 ML 10ml inj IV ONE (18:40)
[2024-01-02] MEDS ORDERED: CEPH250T PO (18:41)
[2024-01-02] MEDS: metoclopramide 5 mg/ml inj IV ONE (18:52)
[2024-01-02] MEDS: HYDROmorphone 1 mg/ml syringe IV ONE (18:54)
[2024-01-02] MEDS: CefTRIAXone 2gm/D5W 50ml BAG 50 ML IV ONE (18:56)
[2024-01-02] MEDS: quetiapine 100mg tablet PO SCH (22:54)
[2024-01-02] MEDS: HYDROmorphone 1 mg/ml syringe IV PRN (22:54)
[2024-01-03 01:58] VITALS: BP 188/96; PULSE 133; RESP 32; TEMP 97.8
[2024-01-03 02:15] VITALS: BP 131/85; PULSE 121; RESP 23; TEMP 98
[2024-01-03 02:30] VITALS: BP 141/80; PULSE 119; RESP 22; TEMP 97.8
[2024-01-03] MEDS: furosemide 10 MG/1 ML 10ml inj IV ONE (02:39)
[2024-01-03 03:00] VITALS: BP 149/84; PULSE 131; RESP 29; TEMP 97.3
[2024-01-03] MEDS: HYDROmorphone 1 mg/ml syringe IV ONE (04:13)
[2024-01-03 05:04] LABS: HEMATOCRIT 28.2 % (42.0-52.0); HEMOGLOBIN 9.4 g/dl (14.0-17.9); MEAN CORPUSCULAR HEMOGLOBIN 30.2 PG (27.0-31.0); MEAN CORPUSCULAR HGB CONC 33.1 g/dL (33.0-36.5); MEAN CORPUSCULAR VOLUME 91.2 FL (78-98); MEAN PLATELET VOLUME 7.3 FL (7.4-10.4); PLATELET COUNT 223 X10'3 (140-440); RED CELL DISTRIBUTION WIDTH 15.4 % (11.5-14.5); WHITE BLOOD COUNT 4.9 X10'3 (4.5-11.0)
[2024-01-03] MEDS: diltiazem 5mg/ml 5ml inj. IV ONE ×2 (06:38→08:33)
[2024-01-03] MEDS: furosemide 20 MG/2 ML vial IV ONE (06:56)
[2024-01-03] MEDS: carVEDilol 12.5mg tablet PO ONE (06:57)
[2024-01-03] MEDS: CefTRIAXone 2gm/D5W 50ml BAG 50 ML IV ONE (06:58)
[2024-01-03 07:03] LABS: BASOPHILS % (AUTO) 0.3 % (0-1); EOSINOPHILS % (AUTO) 0.1 % (0-6); HEMATOCRIT 30.2 % (42.0-52.0); HEMOGLOBIN 10.1 g/dl (14.0-17.9); LYMPHOCYTES # (AUTO) 0.3 X10'3 (1.1-4.8); LYMPHOCYTES % (AUTO) 6.1 % (21-51); MEAN CORPUSCULAR HEMOGLOBIN 30.4 PG (27.0-31.0); MEAN CORPUSCULAR HGB CONC 33.4 g/dL (33.0-36.5); MEAN CORPUSCULAR VOLUME 91.1 FL (78-98); MEAN PLATELET VOLUME 7.5 FL (7.4-10.4); MONOCYTES # (AUTO) 0.5 X10'3 (0-0.9); MONOCYTES % (AUTO) 8.5 % (2-12); NEUTROPHILS # (AUTO) 4.7 X10'3 (1.8-7.7); PLATELET COUNT 237 X10'3 (140-440); RED BLOOD COUNT 3.32 X10'6 (4.70-6.10); RED CELL DISTRIBUTION WIDTH 15.4 % (11.5-14.5); WHITE BLOOD COUNT 5.6 X10'3 (4.5-11.0)
[2024-01-03] MEDS ORDERED: HYDROmorphone 1 mg/ml syringe IV PRN (07:10)
[2024-01-03] MEDS: carVEDilol 12.5mg tablet PO SCH (07:15)
[2024-01-03 07:26] LABS: ALBUMIN 2.2 G/DL (3.4-5.0); ANION GAP 12 (8-16); BLOOD UREA NITROGEN 15 MG/DL (7-18); BUN/CREATININE RATIO 16.9 (10.0-20.0); CHLORIDE 98 MMOL/L (99-107); CREATININE 0.89 MG/DL (0.60-1.10); GLUCOSE 110 MG/DL (70-104); POTASSIUM 4.1 MMOL/L (3.5-5.1); SODIUM 133 MMOL/L (135-145); TOTAL CARBON DIOXIDE 23.5 MMOL/L (24-32); eCRCL 63 ML/MIN; eGFR 86 ML/MIN
[2024-01-03] MEDS ORDERED: HYDROcodone/acetaminophen 10/325mg tab PO PRN (08:00)
[2024-01-03] MEDS ORDERED: ondansetron 4mg rapidly disintigrating tab PO PRN (08:00)
[2024-01-03] MEDS: EMPAGLIFLOZIN 10 MG TABLET PO SCH (08:19)
[2024-01-03] MEDS: metoprolol tartrate 1mg/ml inj IV ONE (08:19)
[2024-01-03] MEDS: proCHLORperazine 10mg tablet PO SCH (08:20)
[2024-01-03] MEDS: aspirin 81mg tab.chew PO SCH (08:20)
[2024-01-03] MEDS: atorvastatin 20mg tablet PO SCH (08:20)
[2024-01-03] MEDS: hydrOXYzine 25 MG tablet PO SCH (08:20)
[2024-01-03] MEDS: sacubitril/valsartan 24mg-26mg tablet PO SCH (08:21)
[2024-01-03] MEDS: spironolactone 25 MG tablet PO SCH (08:23)
[2024-01-03] MEDS: aspirin 325mg tablet PO ONE (08:33)
[2024-01-03 10:15] VITALS: BP 135/84; PULSE 105; RESP 22; TEMP 97.7; O2SAT 91
[2024-01-03] MEDS ORDERED: sertraline 50mg tablet PO SCH (12:30)
[2024-01-03] MEDS ORDERED: pantoprazole 40mg Tablet.DR PO SCH (21:00)
[2024-01-03] MEDS ORDERED: traZODone 50mg tablet PO SCH (21:00)
== END 2024-01-03 10:38 | disposition home or self-care (01) ==
LOC: ER 14:30
DX: J90 Pleural effusion, not elsewhere classified (principal); D64.89 Other specified anemias; C34.90 Malignant neoplasm of unspecified part of unspecified bronchus or lung; I48.0 Paroxysmal atrial fibrillation; I10 Essential (primary) hypertension; G89.29 Other chronic pain; M54.9 Dorsalgia, unspecified; F41.9 Anxiety disorder, unspecified; R11.0 Nausea; Z79.82 Long term (current) use of aspirin; Z79.899 Other long term (current) drug therapy; Z79.2 Long term (current) use of antibiotics; Z87.891 Personal history of nicotine dependence
CPT/HCPCS: 36415; 36430; 71045; 71275; 80048; 80053; 82948; 83605; 83880; 84145; 84484; 85025; 85027; 85379; 86644; 86885; 86900; 86901; 86920; 86945; 87040; 93005; 96365; 96366; 96375; 96376; 99285; J0696; J1170; J1940; J2765; J3490; P9016; Q0164; Q0177; Q9967